=== PATIENT | male | born 1990 | race Caucasian/White ===

== ENCOUNTER 2024-04-18 13:58 | Emergency (ER) | payer OTHER ==
[2024-04-18] MEDS: Acetaminophen/HYDROcodone 325-5 MG Tab PO ONE (14:29)
[2024-04-18] MEDS: Take Home: Acetaminophen/HYDROcodone 325-5 MG, 5 Tab Pack PO ONE (15:16)
== END 2024-04-18 15:20 | disposition home or self-care (01) ==
LOC: VM.ED 13:58 → SUPCPDRO 13:58 → VM.ED 15:20
DX: S02.2XXA Fracture of nasal bones, initial encounter for closed fracture (principal); W55.12XA Struck by horse, initial encounter; Y93.89 Activity, other specified; Z88.2 Allergy status to sulfonamides
CPT/HCPCS: 70486; 99283; 99284; A9270-GY